=== PATIENT | male | born 1990 | race Caucasian/White ===

== ENCOUNTER 2024-08-10 06:21 | Day surgery (SDC) | payer OTHER, SELFPAY | END 2024-08-10 12:05 | disposition home or self-care (01) | LOC: GI 06:21 | PROVIDERS: ATTENDING PHYSICIAN Internal Medicine Gastroenterology; FAMILY PHYSICIAN Family Medicine | DX: K63.3 Ulcer of intestine (principal); R19.7 Diarrhea, unspecified; D13.39 Benign neoplasm of other parts of small intestine; K52.3 Indeterminate colitis; K91.850 Pouchitis; Z90.49 Acquired absence of other specified parts of digestive tract; K63.89 Other specified diseases of intestine | CPT/HCPCS: 44386; 88305 ==

== ENCOUNTER 2025-07-26 06:22 | Day surgery (SDC) | payer OTHER, SELFPAY | END 2025-07-26 14:29 | disposition home or self-care (01) | LOC: GI 06:22 | PROVIDERS: ATTENDING PHYSICIAN Internal Medicine Gastroenterology | DX: K52.3 Indeterminate colitis (principal); K63.89 Other specified diseases of intestine; K62.89 Other specified diseases of anus and rectum; Z98.0 Intestinal bypass and anastomosis status; Z86.0100 Personal history of colon polyps, unspecified; Z90.49 Acquired absence of other specified parts of digestive tract | CPT/HCPCS: 44386; 88305 ==